=== PATIENT | female | born 1965 | race African-American/Black ===

== ENCOUNTER 2016-06-06 16:02 | Observation (INO) | payer OTHER ==
[~2016-06-06] VITALS: Ht 167.6 cm; Wt 95.5 kg
[~2016-06-06 16:02] MED LIST: ACETAMINOPHEN325 M1 PO; ACTOS15 MG PO; ACTOS30 MG PO; ACTOS45 MG PO; ADVIL200 MG PO; ALEVE220 MG PO; AMBIEN5 MG PO; Ambien PO; CELECOXIB200 MG PO; CIPRO500 MG PO; DOCUSATE SODIU100 MG PO; FERROUS SULFAT325 MG PO; FLEXERIL5 MG PO; FLOVENT DISKUS1 DISK IH; GEODON40 MG PO; GIANVI 3 MG-0.1 EACH PO; GLIPIZIDE5 MG PO; GLUCOPHAGE1000 MG PO; GLUMETZA1000 MG PO; Glucophage PO; HUMALOG100 UNIT/1 SQ; HYDROCODON-ACE1 EAC7 PO; HYDROXYZINE PAM25 MG PO; KEFLEX500 MG PO; KLONOPIN1 M1 PO; KLONOPIN2 M1 PO; LANTUS 10100 UNITS/ SC; LANTUS 3 M100 UNITS/ SC; LANTUS 3 M100 UNITS1 SC; LANTUS100 UNIT/1 SQ; LIPITOR10 MG PO; LISINOPRIL5 MG PO; LOVENOX40 MG/0.4 SC; METFORMIN HCL500 M4 PO; METFORMIN HCL500 MG PO; NAPROXEN500 MG PO; NOVOLOG 10100 UNITS/ SQ; NOVOLOG PE100 UNITS/ SC; OMEPRAZOLE40 M1 PO; ONGLYZA2.5 MG PO; PREDNISONE10 MG PO; PROAIR HFA8.5 GM IH; PYRIDIUM100 MG PO; REMERON30 M2 PO; SERTRALINE HCL100 MG PO; SERTRALINE HCL50 MG PO; TYLENOL EXTRA500 MG PO; ULTRAM50 MG PO; VITAMIN D50000 UNI4 PO; ZOFRAN4 MG PO; ZOLOFT100 MG PO; ZOLOFT50 MG PO; ZOLPIDEM TARTRAT5 MG PO; Zoloft PO
[2016-06-06 17:28] LABS: HEMATOCRIT 41.4 % (36.0-46.0); MCH 29.9 PG (29.0-34.0); MCHC 34.5 G/DL (30.0-36.0); MCV 86.6 FL (83-99); MEAN PLAT.VOLUME 9.8 uM^3 (9.5-12.4); PLATELET COUNT 311 K/uL (156-360); RBC DIS.WIDTH-CV 11.8 % (11.8-14.6); RBC DIS.WIDTH-SD 37.2 % (39-53); RED BLOOD COUNT 4.78 M/uL (3.80-5.20); WHITE BLOOD COUNT 10.5 K/uL (4.1-10.2)
[2016-06-06 17:41] LABS: CHLORIDE 101 mEq/L (99-109); POTASSIUM 4.5 mEq/L (3.7-5.4); SODIUM 136 mEq/L (136-147)
[2016-06-06 17:43] LABS: GLUCOSE 206 mg/dL (70-99)
[2016-06-06 17:44] LABS: ANION GAP 12 MEQ/L (2-14)
[2016-06-06 17:47] LABS: GFR ESTIMATE (CALCULATED) > 59 mL/min/
[2016-06-06 17:48] LABS: UREA NITROGEN (BUN) 13 mg/dL (9-23)
[2016-06-06 17:55] LABS: TROP-I INTERPRETATION NEGATIVE; TROPONIN-I < 0.01 ng/mL (0.0-0.30)
[2016-06-06] MEDS ORDERED: METFORMIN HCL1000 MG PO (18:06)
[2016-06-06] MEDS ORDERED: JANUVIA25 M1 PO (18:07)
[2016-06-06 21:12] VITALS: BP 110/74
[2016-06-06 22:26] LABS: POINT-OF-CARE METER ID UU13113831
[2016-06-06 23:40] VITALS: BP 113/70
[2016-06-07 01:32] LABS: TROP-I INTERPRETATION NEGATIVE; TROPONIN-I < 0.01 ng/mL (0.0-0.30)
[2016-06-07 02:00] LABS: ADD MIUA? YES; BILIRUBIN SMALL; BLOOD NEGATIVE; COLOR AMBER ((YELLOW)); GLUCOSE (STRIP) >=500; KETONES 80; LEUKOCYTES MODERATE; NITRITE NEGATIVE; PROTEIN (STRIP) 30; SPECIFIC GRAVITY 1.033 (1.000-1.030)
[2016-06-07 02:08] LABS: BACTERIA NONE SEEN /HPF; EPITHELIAL CELLS 2+ /HPF; MUCUS 1+ /LPF; UCUL ADDED? NO; WHITE BLOOD CELLS 20-30 /HPF (0-5)
[2016-06-07 03:20] LABS: AMPHETAMINES QUANT VALUE 0 NG/ML; BARBITUATES QUANT VALUE 0 NG/ML; BENZODIAZEPINES QUANT VALUE 0 NG/ML; BENZODIAZEPINES, URINE SCREEN Negative (200 ng/mL); MARIJUANA QUANT VALUE 0 NG/ML; OPIATES QUANTITATIVE VALUE 0 NG/ML; PHENCYCLIDINE QUANT VALUE 0 NG/ML
[2016-06-07 04:00] VITALS: BP 108/72
[2016-06-07 07:18] LABS: Estimated Average Glucose 258 mg/dL (70-123)
[2016-06-07 07:35] LABS: HDL CHOLESTEROL 46 MG/DL (Desirable>=50); LDL CHOLESTEROL 82 mg/dL (Desirable<100); NON-HDL CHOLESTEROL 100 mg/dL (Desirable<160); TOTAL CHOLESTEROL 146 mg/dL (Desirable<200); TRIGLYCERIDES 89 MG/DL (Normal: <150)
[2016-06-07 07:37] LABS: TROP-I INTERPRETATION NEGATIVE; TROPONIN-I < 0.01 ng/mL (0.0-0.30)
[2016-06-07 08:04] LABS: HEMOGLOBIN A1c (GLYCOHEMOGLOB) 10.6 % HGB (Below 5.7)
[2016-06-07 08:15] VITALS: BP 113/71
[2016-06-07 08:24] LABS: POINT-OF-CARE METER ID UU14162513
[2016-06-07] MEDS ORDERED: ASPIR-LOW81 MG PO (11:14)
[2016-06-07 12:53] LABS: POINT-OF-CARE METER ID UU13113700
== END 2016-06-07 14:13 | disposition home or self-care (01) ==
LOC: EME 16:02 → EDOF 18:23 → 5WEST 18:23 → EDOF 18:23 → 5WEST 21:01
PROVIDERS: Hospitalist; Physician Assistant; Physician Assistant Medical
DX: R07.89 Other chest pain (principal); I10 Essential (primary) hypertension; E78.5 Hyperlipidemia, unspecified; E11.65 Type 2 diabetes mellitus with hyperglycemia; F31.9 Bipolar disorder, unspecified; E66.9 Obesity, unspecified
CPT/HCPCS: 71020; 80048; 80061; 80306 90; 81003; 82948; 83036; 83735; 84484; 85027; 93005; 99281; 99284; G0378; J1815

== ENCOUNTER 2016-07-03 16:30 | Inpatient (IN) | payer OTHER ==
[~2016-07-03] VITALS: Ht 167.6 cm; Wt 97.3 kg
[~2016-07-03 16:30] MED LIST changes: +ASPIR-LOW81 MG PO; +JANUVIA25 M1 PO; +METFORMIN HCL1000 MG PO
[2016-07-03 17:27] LABS: HEMATOCRIT 42.2 % (36.0-46.0); MCH 29.4 PG (29.0-34.0); MCHC 33.9 G/DL (30.0-36.0); MCV 86.7 FL (83-99); MEAN PLAT.VOLUME 9.5 uM^3 (9.5-12.4); PLATELET COUNT 335 K/uL (156-360); RBC DIS.WIDTH-CV 11.8 % (11.8-14.6); RBC DIS.WIDTH-SD 37.6 % (39-53); RED BLOOD COUNT 4.87 M/uL (3.80-5.20); WHITE BLOOD COUNT 10.9 K/uL (4.1-10.2)
[2016-07-03 17:39] LABS: CHLORIDE 104 mEq/L (99-109); POTASSIUM 3.9 mEq/L (3.7-5.4); SODIUM 138 mEq/L (136-147)
[2016-07-03 17:41] LABS: GLUCOSE 162 mg/dL (70-99)
[2016-07-03 17:42] LABS: ANION GAP 11 MEQ/L (2-14)
[2016-07-03 17:44] LABS: SERUM ETHYL ALCOHOL < 10 mg/dL
[2016-07-03 17:45] LABS: GFR ESTIMATE (CALCULATED) > 59 mL/min/
[2016-07-03 17:46] LABS: UREA NITROGEN (BUN) 11 mg/dL (9-23)
[2016-07-03] MEDS ORDERED: METFORMIN HCL1000 M3 PO (19:10)
[2016-07-03] MEDS ORDERED: JANUVIA25 M1 PO (19:11)
[2016-07-03] MEDS ORDERED: LEVEMIR FL100 UNIT/1 SC (19:12)
[2016-07-03] MEDS ORDERED: ALEVE220 MG PO (21:23)
[2016-07-03 21:54] LABS: AMPHETAMINE NEGATIVE (500 ng/mL); BARBITURATES NEGATIVE (200 ng/mL); BENZODIAZEPINES NEGATIVE (150 ng/mL); COCAINE NEGATIVE (150 ng/mL); INTERNAL CONTROLS VALID? YES; METHADONE NEGATIVE (200 ng/mL); METHAMPHETAMINE NEGATIVE (500 ng/mL); OPIATES (MORPHINE) NEGATIVE (100 ng/mL); OXYCODONE NEGATIVE (100 ng/mL); PHENCYCLIDINE NEGATIVE (25 ng/mL); PROPOXYPHENE NEGATIVE (300 ng/mL); THC CANNABINOIDS NEGATIVE (50 ng/mL); TRICYCLIC ANTIDEPRESSANTS NEGATIVE (300 ng/mL)
[2016-07-03 22:27] VITALS: BP 122/82
[2016-07-04 00:10] LABS: POINT-OF-CARE METER ID UU13113830
[2016-07-04 06:35] LABS: POINT-OF-CARE METER ID UU13113830
[2016-07-04 07:43] VITALS: BP 116/77
[2016-07-04 11:42] LABS: POINT-OF-CARE METER ID UU13113830; POINT-OF-CARE USER ID BHSCRC
[2016-07-04 15:19] VITALS: BP 108/61
[2016-07-04 16:44] LABS: POINT-OF-CARE METER ID UU13113830; POINT-OF-CARE USER ID BHSLRM
[2016-07-04 21:17] LABS: POINT-OF-CARE METER ID UU13113830; POINT-OF-CARE USER ID BHSLRM
[2016-07-05 06:08] LABS: POINT-OF-CARE METER ID UU13113830; POINT-OF-CARE USER ID BHSMEW
[2016-07-05 07:43] VITALS: BP 121/79
[2016-07-05 11:58] LABS: POINT-OF-CARE METER ID UU13113830
[2016-07-05 15:38] VITALS: BP 135/78
[2016-07-05 16:40] LABS: POINT-OF-CARE METER ID UU13113830
[2016-07-06 06:12] LABS: POINT-OF-CARE METER ID UU13113830; POINT-OF-CARE USER ID BHSMEW
[2016-07-06 07:50] VITALS: BP 122/77
[2016-07-06] MEDS ORDERED: VENLAFAXINE HCL75 M3 PO (09:57)
[2016-07-06 11:56] LABS: POINT-OF-CARE METER ID UU13113830
== END 2016-07-06 12:58 | disposition home or self-care (01) | DRG 885 ==
LOC: EME 16:30 → 1WEST 20:21 → EDOF 20:21 → 1WEST 21:51
PROVIDERS: Psychiatry & Neurology Psychiatry
DX: F33.2 Major depressive disorder, recurrent severe without psychotic features (principal); R45.851 Suicidal ideations; F60.3 Borderline personality disorder; G89.29 Other chronic pain; F14.10 Cocaine abuse, uncomplicated; E11.9 Type 2 diabetes mellitus without complications; Z79.4 Long term (current) use of insulin; Z79.84 Long term (current) use of oral hypoglycemic drugs
CPT/HCPCS: 80048; 82948; 85027; 90839; 97150 GO; 97165 GO; 99281; 99285; G0480

== ENCOUNTER 2016-08-11 02:12 | Emergency (ER) | payer OTHER ==
[~2016-08-11] VITALS: Ht 165.1 cm; Wt 97.7 kg
[~2016-08-11 02:12] MED LIST changes: +LEVEMIR FL100 UNIT/1 SC; +METFORMIN HCL1000 M3 PO; +VENLAFAXINE HCL75 M3 PO
[2016-08-11] MEDS ORDERED: NAPROSYN500 MG PO (03:11)
[2016-08-11] MEDS ORDERED: MEDROL DOSEPAK4 MG PO (03:11)
[2016-08-11] MEDS ORDERED: FLEXERIL10 MG PO (03:11)
[2016-08-11 04:00] VITALS: BP 122/84
== END 2016-08-11 04:00 | disposition home or self-care (01) ==
LOC: EME 02:12 → EXP 02:12
DX: M54.40 Lumbago with sciatica, unspecified side (principal)
CPT/HCPCS: 99281; 99284; J1100

== ENCOUNTER 2016-11-10 17:20 | Emergency (ER) | payer OTHER ==
[~2016-11-10] VITALS: Ht 165.1 cm; Wt 92.5 kg
[~2016-11-10 17:20] MED LIST changes: +FLEXERIL10 MG PO; +MEDROL DOSEPAK4 MG PO; +NAPROSYN500 MG PO
[2016-11-10 18:02] LABS: HEMATOCRIT 38.1 % (36.0-46.0); MCH 29.6 PG (29.0-34.0); MCHC 34.9 G/DL (30.0-36.0); MCV 84.9 FL (83-99); MEAN PLAT.VOLUME 9.7 uM^3 (9.5-12.4); PLATELET COUNT 292 K/uL (156-360); RED BLOOD COUNT 4.49 M/uL (3.80-5.20); WHITE BLOOD COUNT 7.5 K/uL (4.1-10.2)
[2016-11-10 18:20] LABS: CHLORIDE 102 mEq/L (99-109); POTASSIUM 3.3 mEq/L (3.7-5.4); SODIUM 135 mEq/L (136-147)
[2016-11-10 18:22] LABS: GLUCOSE 328 mg/dL (70-99)
[2016-11-10 18:24] LABS: ANION GAP 14 MEQ/L (2-14); TOTAL BILIRUBIN 0.4 mg/dL (0.0-1.0)
[2016-11-10 18:26] LABS: ALKALINE PHOSPHATASE 70 IU/L (3-129); GFR ESTIMATE (CALCULATED) > 59 mL/min/
[2016-11-10 18:27] LABS: UREA NITROGEN (BUN) 5 mg/dL (9-23)
[2016-11-10 18:36] LABS: QUANTITATIVE HCG < 4.0 MIU/ML
[2016-11-10 19:28] LABS: ADD MIUA? YES; BILIRUBIN NEGATIVE; BLOOD SMALL; COLOR YELLOW ((YELLOW)); GLUCOSE (STRIP) >=500; KETONES 80; LEUKOCYTES NEGATIVE; NITRITE NEGATIVE; PROTEIN (STRIP) 30; SPECIFIC GRAVITY 1.042 (1.000-1.030); UROBILINOGEN 0.2 MG/DL (0.2-1.0)
[2016-11-10 19:35] LABS: BACTERIA NONE SEEN /HPF; EPITHELIAL CELLS RARE /HPF; MUCUS TRACE /LPF
[2016-11-10] MEDS ORDERED: ZOFRAN ODT4 MG PO (19:38)
[2016-11-10 21:17] LABS: POINT-OF-CARE METER ID UU13113800
[2016-11-10 22:00] VITALS: BP 105/60
== END 2016-11-10 21:39 | disposition home or self-care (01) ==
LOC: EME 17:20
PROVIDERS: Nurse Practitioner Family
DX: B34.9 Viral infection, unspecified (principal); E86.0 Dehydration; R11.2 Nausea with vomiting, unspecified; R50.9 Fever, unspecified; E11.9 Type 2 diabetes mellitus without complications; M79.7 Fibromyalgia; E78.5 Hyperlipidemia, unspecified; I10 Essential (primary) hypertension; Z79.4 Long term (current) use of insulin; Z90.49 Acquired absence of other specified parts of digestive tract; Z90.710 Acquired absence of both cervix and uterus; Z91.5 Personal history of self-harm
CPT/HCPCS: 71020; 80053; 81003; 82948; 84702; 85027; 99281; 99284; J2405; J7030

== ENCOUNTER 2017-04-22 12:44 | Inpatient (IN) | payer OTHER ==
[~2017-04-22] VITALS: Ht 167.6 cm; Wt 91.7 kg
[~2017-04-22 12:44] MED LIST changes: +ZOFRAN ODT4 MG PO
[2017-04-22 14:25] LABS: HEMATOCRIT 38.8 % (36.0-46.0); HEMOGLOBIN 13.6 G/DL (11.9-15.5); MCHC 35.1 G/DL (30.0-36.0); MCV 85.7 FL (83-99); PLATELET COUNT 281 K/uL (156-360); RBC DIS.WIDTH-SD 37.5 % (39-53); RED BLOOD COUNT 4.53 M/uL (3.80-5.20)
[2017-04-22 14:36] LABS: CHLORIDE 102 mEq/L (99-109); POTASSIUM 3.7 mEq/L (3.7-5.4); SODIUM 135 mEq/L (136-147)
[2017-04-22 14:39] LABS: GLUCOSE 417 mg/dL (70-99)
[2017-04-22 14:41] LABS: SERUM ETHYL ALCOHOL < 10 mg/dL
[2017-04-22 14:42] LABS: CREATININE 0.9 mg/dL (0.6-1.3); GFR ESTIMATE (CALCULATED) > 59 mL/min/
[2017-04-22 14:44] LABS: UREA NITROGEN (BUN) 8 mg/dL (9-23)
[2017-04-22 14:45] LABS: ACETAMINOPHEN (TYLENOL) < 10 mcg/mL (10-30); SALICYLATE < 5.0 MG/DL (15-30)
[2017-04-22 15:38] LABS: AMPHETAMINE NEGATIVE (500 ng/mL); BARBITURATES NEGATIVE (200 ng/mL); BENZODIAZEPINES NEGATIVE (150 ng/mL); BUPRENORPHINE NEGATIVE (10 ng/mL); COCAINE NEGATIVE (150 ng/mL); METHADONE NEGATIVE (200 ng/mL); METHAMPHETAMINE NEGATIVE (500 ng/mL); OPIATES (MORPHINE) NEGATIVE (100 ng/mL); OXYCODONE NEGATIVE (100 ng/mL); PHENCYCLIDINE NEGATIVE (25 ng/mL); PROPOXYPHENE NEGATIVE (300 ng/mL); THC CANNABINOIDS NEGATIVE (50 ng/mL); TRICYCLIC ANTIDEPRESSANTS PRESUMPTIVE POSITIVE (300 ng/mL)
[2017-04-22] MEDS ORDERED: EFFEXOR XR75 MG PO ×2 (17:32→17:33)
[2017-04-22] MEDS ORDERED: QUETIAPINE FUMA50 M1 PO (17:33)
[2017-04-22] MEDS ORDERED: VITAMIN D400 UNIT PO (17:33)
[2017-04-22] MEDS ORDERED: ADVIL200 MG PO (17:34)
[2017-04-22] MEDS ORDERED: TYLENOL EXTRA500 MG PO (17:34)
[2017-04-22 18:34] VITALS: BP 130/90
[2017-04-22 18:36] VITALS: BP 130/90
[2017-04-23 07:59] VITALS: BP 126/83
[2017-04-23 15:29] VITALS: BP 101/65
[2017-04-24 07:36] VITALS: BP 122/80
[2017-04-24] MEDS ORDERED: QUETIAPINE FUM100 MG PO (08:49)
[2017-04-24] MEDS ORDERED: SEROQUEL100 MG PO ×2 (09:14→09:30)
== END 2017-04-24 10:02 | disposition home or self-care (01) | DRG 885 ==
LOC: EME 12:44 → EDOF 17:54 → 1WEST 17:54 → ENRESERV 18:29 → 1WEST 18:30
PROVIDERS: Emergency Medicine; Psychiatry & Neurology Psychiatry
DX: F33.1 Major depressive disorder, recurrent, moderate (principal); R45.851 Suicidal ideations; F43.10 Post-traumatic stress disorder, unspecified; I10 Essential (primary) hypertension; E78.5 Hyperlipidemia, unspecified; E11.9 Type 2 diabetes mellitus without complications; M79.7 Fibromyalgia; Z91.19 Patient's noncompliance with other medical treatment and regimen
CPT/HCPCS: 80048; 82948; 85027; 90839; 97150 GO; 97165 GO; 99281; 99285; G0480

== ENCOUNTER 2017-06-05 14:40 | Emergency (ER) | payer OTHER ==
[~2017-06-05] VITALS: Ht 167.6 cm; Wt 94.8 kg
[~2017-06-05 14:40] MED LIST changes: +EFFEXOR XR75 MG PO; +QUETIAPINE FUM100 MG PO; +QUETIAPINE FUMA50 M1 PO; +SEROQUEL100 MG PO; +VITAMIN D400 UNIT PO
[2017-06-05] MEDS ORDERED: NORCO 5/3251 TABLET PO (15:12)
[2017-06-05] MEDS ORDERED: VALIUM5 MG PO (15:12)
[2017-06-05 15:45] VITALS: BP 00/0
== END 2017-06-05 15:47 | disposition home or self-care (01) ==
LOC: EME 14:40
DX: M54.5 Low back pain (principal); E11.9 Type 2 diabetes mellitus without complications; E78.5 Hyperlipidemia, unspecified; K76.9 Liver disease, unspecified; M79.7 Fibromyalgia; F31.9 Bipolar disorder, unspecified; F41.9 Anxiety disorder, unspecified; F32.9 Major depressive disorder, single episode, unspecified; Z79.4 Long term (current) use of insulin; Z87.39 Personal history of other diseases of the musculoskeletal system and connective tissue; Z90.49 Acquired absence of other specified parts of digestive tract; Z90.710 Acquired absence of both cervix and uterus; Z88.8 Allergy status to other drugs, medicaments and biological substances
CPT/HCPCS: 99281; 99284

== ENCOUNTER 2017-06-13 19:39 | Emergency (ER) | payer OTHER ==
[~2017-06-13] VITALS: Ht 167.6 cm; Wt 92.2 kg
[~2017-06-13 19:39] MED LIST changes: +NORCO 5/3251 TABLET PO; +VALIUM5 MG PO
[2017-06-13 20:12] LABS: HEMOGLOBIN 14.9 G/DL (11.9-15.5); MCH 30.3 PG (29.0-34.0); MCHC 35.5 G/DL (30.0-36.0); MCV 85.5 FL (83-99); PLATELET COUNT 338 K/uL (156-360); RBC DIS.WIDTH-CV 11.8 % (11.8-14.6); RBC DIS.WIDTH-SD 36.8 % (39-53); RED BLOOD COUNT 4.91 M/uL (3.80-5.20)
[2017-06-13 20:26] LABS: CHLORIDE 98 mEq/L (99-109); POTASSIUM 4.3 mEq/L (3.7-5.4); SODIUM 133 mEq/L (136-147)
[2017-06-13 20:29] LABS: GLUCOSE 558 mg/dL (70-99)
[2017-06-13 20:31] LABS: CREATININE 1.1 mg/dL (0.6-1.3); GFR ESTIMATE (CALCULATED) > 59 mL/min/
[2017-06-13 20:32] LABS: UREA NITROGEN (BUN) 12 mg/dL (9-23)
[2017-06-13 20:35] LABS: TROP-I INTERPRETATION NEGATIVE; TROPONIN-I < 0.01 ng/mL (0.0-0.30)
[2017-06-13 20:52] LABS: MAGNESIUM 2.4 mg/dL (1.3-2.7)
[2017-06-13 20:57] LABS: PHOSPHORUS 2.8 mg/dL (2.5-4.9)
[2017-06-13 21:00] LABS: LIPASE 24 U/L (1.0-51.0)
[2017-06-13 21:31] LABS: CARBON DIOXIDE (BICARBONATE) 23.8 MEQ/L (20-31)
[2017-06-13 22:13] LABS: APPEARANCE SL.HAZY ((CLEAR)); BILIRUBIN NEGATIVE; BLOOD NEGATIVE; COLOR STRAW ((YELLOW)); GLUCOSE (STRIP) >=500; KETONES 80; LEUKOCYTES LARGE; NITRITE NEGATIVE; PROTEIN (STRIP) NEGATIVE; SPECIFIC GRAVITY 1.035 (1.000-1.030); UROBILINOGEN 0.2 MG/DL (0.2-1.0)
[2017-06-13 22:22] LABS: BACTERIA RARE /HPF; EPITHELIAL CELLS 1+ /HPF; MUCUS TRACE /LPF; RED BLOOD CELLS 40-50 /HPF (0-5); WHITE BLOOD CELLS 20-30 /HPF (0-5)
[2017-06-13] MEDS ORDERED: METFORMIN HCL1000 MG PO (22:38)
[2017-06-13] MEDS ORDERED: LEVEMIR100 UNIT/2 SC (22:38)
[2017-06-13] MEDS ORDERED: TEST STRIPS MC (22:38)
[2017-06-13] MEDS ORDERED: EASY TOUCH HYP1 EA10 MC (22:38)
[2017-06-13] MEDS ORDERED: ALCOHOL SWAB1 EACH TP (22:38)
[2017-06-13 23:16] VITALS: BP 116/82
== END 2017-06-13 23:19 | disposition home or self-care (01) ==
LOC: EME 19:39
PROVIDERS: Emergency Medicine
DX: E11.65 Type 2 diabetes mellitus with hyperglycemia (principal); N39.0 Urinary tract infection, site not specified; E86.0 Dehydration; R00.0 Tachycardia, unspecified; E78.5 Hyperlipidemia, unspecified; K76.9 Liver disease, unspecified; M79.7 Fibromyalgia; F41.9 Anxiety disorder, unspecified; F32.9 Major depressive disorder, single episode, unspecified; F31.9 Bipolar disorder, unspecified; Z79.4 Long term (current) use of insulin; Z90.49 Acquired absence of other specified parts of digestive tract; Z90.710 Acquired absence of both cervix and uterus; Z88.8 Allergy status to other drugs, medicaments and biological substances
CPT/HCPCS: 71046; 80048; 81003; 82803; 82948; 83605; 83690; 83735; 83930; 84100; 84484; 85027; 87040; 93005; 99281; 99285; J7030

== ENCOUNTER 2017-08-13 19:57 | Emergency (ER) | payer OTHER ==
[~2017-08-13] VITALS: Ht 167.6 cm; Wt 101.7 kg
[~2017-08-13 19:57] MED LIST changes: +ALCOHOL SWAB1 EACH TP; +EASY TOUCH HYP1 EA10 MC; +LEVEMIR100 UNIT/2 SC; +TEST STRIPS MC
[2017-08-13 20:29] LABS: HEMATOCRIT 37.3 % (36.0-46.0); HEMOGLOBIN 12.8 G/DL (11.9-15.5); MCH 30.5 PG (29.0-34.0); MCHC 34.3 G/DL (30.0-36.0); MCV 88.8 FL (83-99); PLATELET COUNT 290 K/uL (156-360); RBC DIS.WIDTH-CV 12.4 % (11.8-14.6); RBC DIS.WIDTH-SD 40.3 % (39-53); WHITE BLOOD COUNT 11.3 K/uL (4.1-10.2)
[2017-08-13 20:38] LABS: ALBUMIN 4.1 g/dL (3.2-4.8); CHLORIDE 100 mEq/L (99-109); POTASSIUM 4.4 mEq/L (3.7-5.4); SODIUM 137 mEq/L (136-147)
[2017-08-13 20:41] LABS: GLUCOSE 263 mg/dL (70-99); TOTAL PROTEIN 7.5 g/dL (6.4-8.3)
[2017-08-13 20:42] LABS: TOTAL BILIRUBIN 0.2 mg/dL (0.0-1.0)
[2017-08-13 20:44] LABS: ALKALINE PHOSPHATASE 57 IU/L (3-129); CREATININE 0.9 mg/dL (0.6-1.3); GFR ESTIMATE (CALCULATED) > 59 mL/min/
[2017-08-13 20:45] LABS: UREA NITROGEN (BUN) 13 mg/dL (9-23)
[2017-08-13 20:46] LABS: AST (GOT) 28 IU/L (2-34)
[2017-08-13 20:47] LABS: ALT (GPT) 37 IU/L (3-49)
[2017-08-13 20:50] LABS: QUANTITATIVE HCG < 4.0 MIU/ML
[2017-08-13 22:13] LABS: TROP-I INTERPRETATION NEGATIVE; TROPONIN-I < 0.01 ng/mL (0.0-0.30)
[2017-08-13 22:36] LABS: LIPASE 29 U/L (1.0-51.0)
[2017-08-14 01:16] LABS: TROP-I INTERPRETATION NEGATIVE; TROPONIN-I < 0.01 ng/mL (0.0-0.30)
[2017-08-14 01:43] VITALS: BP 130/85
== END 2017-08-14 01:43 | disposition home or self-care (01) ==
LOC: EME 19:57
PROVIDERS: Physician Assistant Medical
DX: R10.11 Right upper quadrant pain (principal); R10.13 Epigastric pain; M79.7 Fibromyalgia; E78.5 Hyperlipidemia, unspecified; E11.9 Type 2 diabetes mellitus without complications; F41.9 Anxiety disorder, unspecified; F32.9 Major depressive disorder, single episode, unspecified; F31.9 Bipolar disorder, unspecified; Z90.49 Acquired absence of other specified parts of digestive tract; Z90.710 Acquired absence of both cervix and uterus; Z79.4 Long term (current) use of insulin; Z88.8 Allergy status to other drugs, medicaments and biological substances
CPT/HCPCS: 74176; 80053; 81003; 83690; 84484; 84702; 85027; 93005; 99281; 99285

== ENCOUNTER → 2017-10-12 | Outpatient (CLI) | payer OTHER ==
[~2017-10-12] VITALS: Ht 167.6 cm; Wt 104.3 kg
[~2017-10-12] MED LIST changes: +JANUVIA100 MG PO; +LAMICTAL150 M1 PO; +METFORMIN HCL750 MG PO; +TRESIBA FL100 UNIT/1 SC
== END | disposition home or self-care (01) ==
LOC: AMB 08:50
PROVIDERS: Internal Medicine
PROC: 0DJD8ZZ Inspection of Lower Intestinal Tract, Via Natural or Artificial Opening Endoscopic (ICD-10-PCS; principal; 2017-10-12)
DX: K92.1 Melena (principal); K59.00 Constipation, unspecified; K57.30 Diverticulosis of large intestine without perforation or abscess without bleeding; I10 Essential (primary) hypertension; E11.65 Type 2 diabetes mellitus with hyperglycemia; Z79.1 Long term (current) use of non-steroidal anti-inflammatories (NSAID); Z68.36 Body mass index [BMI] 36.0-36.9, adult; Z88.8 Allergy status to other drugs, medicaments and biological substances
CPT/HCPCS: 82948; J2250